=== PATIENT | male | born 1970 | race Caucasian/White ===

== ENCOUNTER 2023-03-06 15:24 | Emergency (ER) | payer OTHER, MEDICAID ==
[~2023-03-06] VITALS: Ht 160 cm; Wt 74.4 kg
[2023-03-06 15:25] VITALS: BP_SYST 125; PULSE 79; RESP 18; TEMP 96.9; O2SAT 96
[2023-03-06] MEDS ORDERED: MORPHINE 4 MG INJ. 4 MG/ML VIAL IVP ONE (16:00)
[2023-03-06] MEDS ORDERED: KETOROLAC TROMETHAMINE 30 MG VIAL IVP ONE (17:45)
[2023-03-06] MEDS ORDERED: IBUP-1970 PO (19:05)
[2023-03-06] MEDS ORDERED: CYCL10TA24 PO (19:05)
[2023-03-06] MEDS ORDERED: ACET-2634 PO (19:05)
[2023-03-06 19:21] VITALS: BP_SYST 131; PULSE 70; RESP 16; TEMP 97.4; O2SAT 96
== END 2023-03-06 19:18 | disposition home or self-care (01) ==
LOC: SED 15:24
DX: S16.1XXA Strain of muscle, fascia and tendon at neck level, initial encounter (principal); S39.012A Strain of muscle, fascia and tendon of lower back, initial encounter; S63.502A Unspecified sprain of left wrist, initial encounter; Z79.899 Other long term (current) drug therapy; V89.2XXA Person injured in unspecified motor-vehicle accident, traffic, initial encounter; Y93.89 Activity, other specified; Y92.89 Other specified places as the place of occurrence of the external cause; Y99.8 Other external cause status
CPT/HCPCS: 99285; 70450; 96374; 96375; 73110; 72125; 72131; 76376; J1885; J2270